=== PATIENT | female | born 2000 | race Hispanic/Latino ===

== ENCOUNTER 2021-07-26 03:48 | Inpatient (IN) | payer OTHER ==
[~2021-07-26] VITALS: Ht 165.1 cm; Wt 74.4 kg
--- NOTE | 2021-07-26 08:18 | PR ---
[facility] [address] [facility] [place], [place] [address] Signed Progress Notes IP Datetime Report Generated by CPN: 07/26/2021 08:17 PROGRESS NOTES: [id number] Impression: Normal Progression of Labor Procedures: Artificial ROM; Sterile Vag Exam Plan: Continue Present Management VITAL SIGNS: [id number] Vital Signs: Reviewed; Within Normal Limits EXAM: [id number] Dilatation: 4.0 Effacement: 90 Station: -3 Contractions: not picking up well MEMBRANES: [id number] ROM Note: Buldging Comments: Progressing. Will continue. FETUS A: [id number] FHR Baseline: 140 Variability: Moderate 6-25bpm Accelerations: 15X15 Decelerations: None FHR Category: Category I Presentation: Vertex Comments on Fetus A: no evidence of metabolic acidosis FETUS B: [id number] Signing Physician: Tammy Dozier MD Copies: ~ *Electronically Signed* 07/26/21816 TAMMY DOZIER MD PATIENT NAME: IRAJ FRAIRE J CARLOS PROGRESS NOTE DATE OF : 01 PHYSICIAN: TAMMY DOZIER MD RPT #: [id number] REPORT IS CONFIDENTIAL AND NOT TO BE RELEASED WITHOUT AUTHORIZATION
--- NOTE | 2021-07-27 08:05 | PR ---
[facility] [address] [facility] [place] [address] Signed PP Progress Notes Datetime Report Generated by CPN: 07/27/2021 08:05 SUBJECTIVE: [id number] Pain: Within Normal Limits Vital Signs: [id number] Vital Signs: Reviewed; Within Normal Limits Cardiovascular: Not Done Respiratory: Not Done Abdomen/Uterus: Abnormal Lochia: Normal Vulva/Perineum: Not Done Breasts: Not Done CVA Tenderness: Not Done Extremities: Normal Incision: Not Applicable Progress: Normal Exam Comments: Fundus firm, NT @ U-2 H/H 9.8/29.3, WBC 10.2, plat 142k IMPRESSION/PLAN/PROCEDURES: [id number] Impression: Normal Progression Other Impression: anemia Plan: Continue Present Management Procedures: None Progress Notes: Doing well. Will continue present management. Signing Physician: Tammy Dozier MD Copies: ~ *Electronically Signed* 07/27/21 08 TAMMY DOZIER MD PATIENT NAME: IRAJ FRAIRE PROGRESS NOTE DATE OF : 01 PHYSICIAN: TAMMY DOZIER MD RPT #: [id number] REPORT IS CONFIDENTIAL AND NOT TO BE RELEASED WITHOUT AUTHORIZATION
--- NOTE | 2021-07-28 06:43 | PR ---
[facility] [address] [facility] [place] [address] Signed PP Progress Notes Datetime Report Generated by CPN: 07/28/2021 06:43 SUBJECTIVE: [id number] Pain: Within Normal Limits Vital Signs: [id number] Vital Signs: Reviewed; Within Normal Limits Cardiovascular: Not Done Respiratory: Not Done Abdomen/Uterus: Abnormal Lochia: Normal Vulva/Perineum: Not Done Breasts: Not Done CVA Tenderness: Not Done Extremities: Normal Incision: Not Applicable Progress: Normal Exam Comments: Fundus firm, NT @ U-2. IMPRESSION/PLAN/PROCEDURES: [id number] Impression: Normal Progression Other Impression: anemia Plan: Discharge Procedures: None Progress Notes: Doing well. She is ready for D/C. Signing Physician: Tammy Dozier MD Copies: ~ *Electronically Signed* 07/28/21 0643 TAMMY DOZIER MD PATIENT NAME: IRAJ FRAIRE PROGRESS NOTE DATE OF : 01 PHYSICIAN: TAMMY DOZIER MD RPT #: [id number] REPORT IS CONFIDENTIAL AND NOT TO BE RELEASED WITHOUT AUTHORIZATION
== END 2021-07-28 12:30 | disposition home or self-care (01) | DRG 807 ==
LOC: FBCO 03:48 → FBC 04:33
PROVIDERS: ADMIT Obstetrics & Gynecology; ATTEND Obstetrics & Gynecology
PROC: 10E0XZZ Delivery of Products of Conception, External Approach (ICD-10-PCS; principal; 2021-07-26)
PROC: 3E0R3BZ Introduction of Anesthetic Agent into Spinal Canal, Percutaneous Approach (ICD-10-PCS; 2021-07-26)
PROC: 00HU33Z Insertion of Infusion Device into Spinal Canal, Percutaneous Approach (ICD-10-PCS; 2021-07-26)
PROC: 10907ZC Drainage of Amniotic Fluid, Therapeutic from Products of Conception, Via Natural or Artificial Opening (ICD-10-PCS; 2021-07-26)
PROC: 0HQ9XZZ Repair Perineum Skin, External Approach (ICD-10-PCS; 2021-07-26)
DX: O80 Encounter for full-term uncomplicated delivery (principal); Z37.0 Single live birth; O99.02 Anemia complicating childbirth; Z20.822 Contact with and (suspected) exposure to COVID-19; Z3A.39 39 weeks gestation of pregnancy; O70.0 First degree perineal laceration during delivery; Z79.899 Other long term (current) drug therapy
CPT/HCPCS: 01960; 36415; 82565; 82570; 84156; 84450; 84520; 84550; 85025; 85027; 86850; 86900; 86901; 87502; J2590; J2795; J3010; J7121; U0003

== ENCOUNTER 2024-06-14 05:10 | Inpatient (IN) | payer OTHER ==
[2024-06-14] MEDS ORDERED: MAGNESIUM HYDROXIDE/AL HYDROX 30 ML CUP PO PRN (05:45)
[2024-06-14] MEDS ORDERED: CALCIUM CARBONATE 500 MG CHEW PO PRN (05:45)
[2024-06-14] MEDS ORDERED: LACTATED RINGER'S 1,000 ML IV PRN (05:45)
[2024-06-14] MEDS ORDERED: OXYTOCIN/0.9 % SODIUM CHLORIDE 30 UNITS/500 ML BAG IV SCH (05:45)
[2024-06-14] MEDS ORDERED: LIDOCAINE 2% VISCOUS 6 ML SYR TOP ONE ×3 (05:45→07:00)
[2024-06-14 05:48] LABS: HEMATOCRIT 33.2 % (35.0-50.0); HEMOGLOBIN 11.2 g/dL (12.0-18.0); MCH 28.8 (27-36); MCHC 33.6 g/dl (30-36); MCV 85.5 fl (81-99); RBC 3.88 M/ul (4.3-5.7); RDW 14.2 (10.5-15.0)
[2024-06-14] MEDS ORDERED: ePHEDrine sulfate 5 MG/ML SYRINGE IV PRN (06:00)
[2024-06-14] MEDS ORDERED: LACTATED RINGER'S 500 ML IV PRN (06:00)
[2024-06-14] MEDS ORDERED: ROPIVACAINE 0.2% 200 ML BAG EPIDURAL SCH (06:00)
[2024-06-14] MEDS ORDERED: LACTATED RINGER'S 2,000 ML IV ONE (06:00)
[2024-06-14] MEDS ORDERED: fentaNYL citrate 100 MCG/2 ML VIAL ONE (06:02)
[2024-06-14 06:21] LABS: ABO O; RH POSITIVE
[2024-06-14 06:22] LABS: ANTIBODY SCREEN NEGATIVE
[2024-06-14] MEDS ORDERED: HYDROCORTISONE ACETATE 25 MG SUPP PR PRN (07:00)
[2024-06-14] MEDS ORDERED: MAGNESIUM HYDROXIDE 30 ML UDC PO PRN (07:00)
[2024-06-14] MEDS ORDERED: BENZOCAINE 60 ML AEROSOL TOP PRN (07:00)
[2024-06-14] MEDS ORDERED: ACETAMINOPHEN 325 MG TAB PO PRN (07:00)
[2024-06-14] MEDS ORDERED: WITCH HAZEL/GLYCERIN 1 EA PAD TOP PRN (07:00)
[2024-06-14] MEDS ORDERED: OXYTOCIN/0.9 % SODIUM CHLORIDE 500 ML IV SCH (07:00)
[2024-06-14] MEDS ORDERED: IBUPROFEN 600 MG TAB PO PRN (07:00)
[2024-06-14 07:15] VITALS: BP 118/72
[2024-06-14 08:40] LABS: AMPHETAMINES, URINE NEGATIVE (NEGATIVE); BARBITURATES, URINE NEGATIVE (NEGATIVE); BENZODIAZEPINE, URINE NEGATIVE (NEGATIVE); BUPRENORPHINE, URINE NEGATIVE (NEGATIVE); CANNABINOID, URINE NEGATIVE (NEGATIVE); COCAINE, URINE NEGATIVE (NEGATIVE); ECSTASY, URINE NEGATIVE (NEGATIVE); FENTANYL, URINE NEGATIVE (NEGATIVE); METHADONE, URINE NEGATIVE (NEGATIVE); OPIATES, URINE NEGATIVE (NEGATIVE); OXYCODONE, URINE NEGATIVE (NEGATIVE); PHENCYCLIDINE, URINE NEGATIVE (NEGATIVE)
[2024-06-14] MEDS ORDERED: miSOPROStoL 200 MCG TAB PR ONE (08:45)
[2024-06-14] MEDS ORDERED: TRANEXAMIC ACID IN NACL,ISO-OS 1,000 MG/100 ML PIGGYBACK IV ONE (08:45)
[2024-06-14] MEDS ORDERED: SENNOSIDES/DOCUSATE 1 EA TAB PO SCH (09:00)
[2024-06-15 05:30] LABS: HEMATOCRIT 29.5 % (35.0-50.0); HEMOGLOBIN 9.8 g/dL (12.0-18.0); MCH 28.8 (27-36); MCHC 33.2 g/dl (30-36); MCV 86.9 fl (81-99); RBC 3.39 M/ul (4.3-5.7); RDW 13.9 (10.5-15.0)
== END 2024-06-15 11:50 | disposition home or self-care (01) | DRG 807 ==
LOC: FBCO 05:10 → FBC 05:25
PROVIDERS: ADMIT Obstetrics & Gynecology; ATTEND Obstetrics & Gynecology
PROC: 10E0XZZ Delivery of Products of Conception, External Approach (ICD-10-PCS; principal; 2024-06-14)
PROC: 0KQM0ZZ Repair Perineum Muscle, Open Approach (ICD-10-PCS; 2024-06-14)
PROC: 00HU33Z Insertion of Infusion Device into Spinal Canal, Percutaneous Approach (ICD-10-PCS; 2024-06-14)
PROC: 3E0R3BZ Introduction of Anesthetic Agent into Spinal Canal, Percutaneous Approach (ICD-10-PCS; 2024-06-14)
PROC: 4A1HXCZ Monitoring of Products of Conception, Cardiac Rate, External Approach (ICD-10-PCS; 2024-06-14)
DX: O62.3 Precipitate labor (principal); Z37.0 Single live birth; Z3A.38 38 weeks gestation of pregnancy; O70.1 Second degree perineal laceration during delivery
CPT/HCPCS: 01960; 31500; 36415; 80307; 85027; 86850; 86900; 86901; A9270